=== PATIENT | female | born 1985 | race Caucasian/White ===

== ENCOUNTER 2024-07-15 13:43 | Emergency (ER) | payer BC, MEDICAID, OTHER ==
[~2024-07-15] VITALS: Ht 167.6 cm; Wt 77.0 kg
[2024-07-15 14:42] VITALS: BP 150/87; PULSE 80; RESP 18; O2SAT 98
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
[2024-07-15] MEDS: KETOROLAC TROMETH 60MG/2ML VIAL IM ONE (15:17)
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
[2024-07-15] MEDS ORDERED: BACL10TA PO (15:49)
[2024-07-15] MEDS ORDERED: IBUP-1456 PO (15:49)
== END 2024-07-15 16:13 | disposition home or self-care (01) ==
LOC: EDBD 13:43 → ER 13:43
DX: S62.642A Nondisplaced fracture of proximal phalanx of right middle finger, initial encounter for closed fracture (principal); S16.1XXA Strain of muscle, fascia and tendon at neck level, initial encounter; S20.212A Contusion of left front wall of thorax, initial encounter; V43.63XA Car passenger injured in collision with pick-up truck in traffic accident, initial encounter; Y93.89 Activity, other specified; Y92.89 Other specified places as the place of occurrence of the external cause; Y99.8 Other external cause status
CPT/HCPCS: 29125; 71046; 72040; 73130; 96372; 99284; J1885